=== PATIENT | male | born 1955 | race Caucasian/White ===

== ENCOUNTER → 2016-09-15 | Outpatient (CLI) | payer BC ==
[~2016-09-15] MED LIST: ALDACTONE25 MG PO; AMARYL PO; ASPIRIN81 M2 PO; ATACAND HCT 16/1 TAB; ATENOLOL-CHLOR1 EACH PO; BENADRYL25 M3 PO; CARDURA; CARDURA8 MG PO; CARVEDILOL25 MG PO; CHLORTHALIDONE25 M1 PO; DICLOFENAC; DULOXETINE HCL60 MG PO; EFFEXOR XR; FENOFIBRATE160 MG PO; FLEXERIL10 MG PO; HYDROCODON-ACE1 EAC9 PO; JANUVIA PO; LIPITOR PO; LISINOPRIL PO; METFORMIN HCL500 M1 PO; NORCO 10-325 TA1 TAB PO; NORVASC; PIOGLITAZONE HC45 MG PO; VITAMIN D35000 UNIT PO
--- NOTE | ~2016-09-15 | MR114 ---
[facility] A Service of [facility] RADIOLOGY TEXT RESULTS PATIENT: HOA ALATORRE LOCATION: [facility] : [birth year] UNIT #: [id number] AGE: [address]: Tyrone Duke MD SEX: M ORDER DR: [id number] [address] [id number] MR#: [id number] Acc #: [id number] NAME: HOA ALATORRE : 1955 SEX: M STUDY DATE/TIME: 09/15/2016 12:53 UNIT: [facility] ROOM: STUDY DESCRIPTION: MR MRA Abdomen W Contrast Attending Physician: Tyrone Duke M.D. Ordering Physician: Tyrone Duke M.D. Primary Care Physician: Tyrone Duke M.D. [facility] REPORT This report is preliminary unless electronic signature is present. EXAM MRA of the abdomen, with contrast, 09/15/2016. HISTORY 61-year-old male with uncontrolled hypertension. Hypertension times 10 years. Blood pressure medication still not regulating the hypertension. History of melanoma, knee replacement, and appendectomy. TECHNIQUE Multisequence, multiplanar MRA of the renal arteries was performed, utilizing a renal artery protocol. Imaging was performed after the uneventful intervenous administration of 20 mL of MultiHance contrast material. COMPARISON STUDIES We have no comparisons. FINDINGS MRA ABDOMEN: The descending thoracic aorta is tortuous and the abdominal aorta is also tortuous. There is no distinct aneurysm. There is a single left renal artery. There is a dominant right renal artery and a tiny accessory inferior right renal artery. The left and right renal arteries are patent bilaterally. There is no distinct evidence of renal artery stenosis on either side. No distinct evidence of fibromuscular dysplasia. Celiac origin, SMA origin, and ORLY origin appear Brandon patch. There are numerous T2 hyperintense lesions in both kidneys. These likely represent benign cysts, but are incompletely characterized on this examination, which was specifically tailored to evaluate the renal arteries. Maximum intensity projection images demonstrate no additional finding. [facility] Service [facility] RADIOLOGY TEXT RESULTS PAT[facility]: HOA ALATORRE [id number] [birth year] UNIT #: [id number] AGE: [address]: Tyrone Duke MD SEX: M ORDER DR: IMPRESSION 1. No MRI evidence of significant renal artery stenosis. There is a single left renal artery, and there is a dominant right renal artery and smaller inferiorly oriented accessory right renal artery. 2. Probably benign cysts in both kidneys incompletely characterized on this examination. 3. Tortuous aorta. Dictated by... Ean Viera M.D. THIS IS AN ELECTRONICALLY VERIFIED REPORT Ean Viera M.D. at 09/16/2016 7:43 AM Ailin TD: 09/15/2016 19:26 JOB #: [id number] [facility] REPORT
[2016-09-15 14:30] LABS: POC - CREATININE 1.47 mg/dL (0.64-1.27)
== END | disposition home or self-care (01) ==
LOC: SMRI 07:40
PROVIDERS: Family Medicine
DX: I10 Essential (primary) hypertension (principal); I77.1 Stricture of artery
CPT/HCPCS: 82565; A9581; C8900